=== PATIENT | female | born 1990 | race Caucasian/White ===

== ENCOUNTER 2019-05-09 17:10 | Emergency (ER) | payer OTHER, SELFPAY ==
--- NOTE | 2019-05-09 17:14 | DI.US.S_ITS ---
PROCEDURE: US PELVIC COMPLETE INDICATIONS: CONCERN FOR LEFT-SIDED OVARIAN TORSION, LT PELVIC PAIN TECHNIQUE: Real-time scanning was performed of the pelvic organs, with image documentation. Additional endovaginal scanning was necessary due to incomplete visualization of the adnexal and endometrial structures by transabdominal scanning. COMPARISON: None. FINDINGS: Transabdominal scanning: Limited scanning through the kidneys shows no hydronephrosis. No pathologic free abdominal or pelvic fluid. Endovaginal scanning: Uterus: Uterus is normal in size at 9.8 x 5.0 x 7.2 cm cm. The endometrium measures 8 mm in combined thickness. Ovaries: Right ovary measures 4.40 1.6 x 2.0 cm. Left ovary measures 5.6 x 2.0 x 2.0 cm. There is normal flow noted in both ovaries. The left ovary is normal in appearance. IMPRESSION: Unremarkable pelvic ultrasound no evidence of left ovarian torsion. Dictated by: Javier Denny M.D. on 05/09/2019 at 18:29 Approved by: Javier Denny M.D. on 05/09/2019 at 18:33
[2019-05-09 17:15] VITALS: BP 108/57; PULSE 66; RESP 13; TEMP 36.5; O2SAT 97; BMI 23.7
--- NOTE | 2019-05-09 17:27 | ED_ITS ---
HPI - Abdominal Pain <Jeffry Giang DO - Last Filed: 05/10/19 07:21> General Chief Complaint: Abdominal Pain Stated Complaint: SENT FOR POSSIBLE OVARIAN TORSION Time Seen by Provider: 05/09/19 17:14 Source: patient Mode of arrival: ambulatory Limitations: no limitations History of Present Illness HPI narrative: Patient is a 29-year-old female. She is a . She is not currently . Is using condoms for control. States she has a few days away from ?ovulation ?no prior abdominal surgeries. Was sent over from her spot billing clerk for concerns of ovarian torsion. She states that yesterday in the afternoon she had a fairly sudden onset of left-sided adnexal pain. She states that has continued since then. No vaginal bleeding. No urinary symptoms. She states she is constipated. No vomiting. States that the symptoms do not change with urinating. Related Data Previous Rx's Medication Instructions Recorded hydrocodone-acetaminophen 1 tab PO Q4-6H PRN #10 tab 05/09/19 ibuprofen 600 mg PO TID-QID PRN #20 tab 05/09/19 ondansetron 4 mg PO TID-QID PRN #10 tab 05/09/19 Allergies Allergy/AdvReac Type Severity Reaction Status Date / Time No Known Drug Allergies Allergy Verified 05/09/19 17:21 Review of Systems <Jeffry Giang DO - Last Filed: 05/10/19 07:21> Constitutional Denies fever(s) and Denies headache(s) ENT Ears, Nose, Mouth, and Throat: Denies headache(s) Cardiovascular Denies chest pain and Denies dyspnea Respiratory Denies dyspnea Gastrointestinal Gastrointestinal: Reports abdominal pain, Reports constipation, Denies diarrhea, Denies nausea and Denies vomiting Genitourinary Denies dysuria and Denies vaginal discharge Musculoskeletal Denies back pain, Denies myalgias and Denies arthralgias Integumentary/Breasts Denies rash Neurologic Denies behavioral changes and Denies headache(s) Psychiatric Denies behavioral changes Hematologic/Lymphatic Denies easy bleeding and Denies easy bruising PFSH <Jeffry Giang DO - Last Filed: 05/10/19 07:21> Medical History Healthy adult (Acute) Social History Smoking Status: Current some day smoker Social History Smoking Status: Current some day smoker Exam <Jeffry Giang DO - Last Filed: 05/10/19 07:21> Initial Vital Signs Initial Vital Signs: Vital Signs Temperature 97.7 F 05/09/19 17:15 Pulse Rate 66 05/09/19 17:15 Respiratory Rate 13 05/09/19 17:15 Blood Pressure 108/57 L 05/09/19 17:15 Pulse Oximetry 97 05/09/19 17:15 Const General: cooperative, comfortable, well developed, well groomed and No acute distress Orientation: alert, awake and oriented x3 HENMT Head: normal to inspection and normocephalic Resp Effort & Inspection: normal respiratory effort Auscultation: clear to auscultation bilaterally Cardio Rate: regular rate Rhythm: regular rhythm GI Inspection: non-distended Palpation: soft, No firm and No tender Speculum Exam - Cervix: nontender Bimanual Exam- Vagina & Uterus: normal cervical palpation, No cervical tenderness and no cervical motion tenderness Bimanual Exam- Adnexa, other: adnexal tenderness on the left Skin Lesions: no lesions Rashes: no rashes Neuro General: alert and awake Cognition: normal cognition Speech: speech normal Motor: muscle tone normal throughout Sensory Exam: no sensory deficits noted Extrem General: normal to inspection and capillary refill normal Psych Appearance: grossly normal and well kempt <Shyam Joya DO - Last Filed: 05/10/19 00:14> Initial Vital Signs Initial Vital Signs: Vital Signs Temperature 97.7 F 05/09/19 17:15 Pulse Rate 66 05/09/19 17:15 Respiratory Rate 13 05/09/19 17:15 Blood Pressure 108/57 L 05/09/19 17:15 Pulse Oximetry 97 05/09/19 17:15 Course <DO Wilfredo Andre Last Filed: 05/10/19 07:21> Orders Ordered: Discontinued Medications Morphine Sulfate (Morphine) 4 mg IV NOW ONE Stop: 05/09/19 17:29 Last Admin: 05/09/19 18:33 Dose: Not Given Ondansetron HCl (Zofran) 4 mg IV NOW ONE Stop: 05/09/19 17:29 Last Admin: 05/09/19 18:33 Dose: Not Given Vital Signs - 8 hr 05/09/19 17:15 05/09/19 18:31 05/09/19 20:12 Temperature 97.7 F Pulse Rate 66 68 92 H Respiratory Rate 13 18 Blood Pressure 108/57 L 115/95 H Blood Pressure [Right Arm] 98/50 L Pulse Oximetry 97 98 <Shyam Joya DO - Last Filed: 05/10/19 00:14> Course Narrative: I received this patient from Dr. Giang and performed an independent history and physical. I have no significant additions to the above. Orders Ordered: Discontinued Medications Morphine Sulfate (Morphine) 4 mg IV NOW ONE Stop: 05/09/19 17:29 Last Admin: 05/09/19 18:33 Dose: Not Given Ondansetron HCl (Zofran) 4 mg IV NOW ONE Stop: 05/09/19 17:29 Last Admin: 05/09/19 18:33 Dose: Not Given Vital Signs - 8 hr 05/09/19 17:15 05/09/19 18:31 05/09/19 20:12 Temperature 97.7 F Pulse Rate 66 68 92 H Respiratory Rate 13 18 Blood Pressure 108/57 L 115/95 H Blood Pressure [Right Arm] 98/50 L Pulse Oximetry 97 98 MDM - Abdominal Pain <Jeffry Giang DO - Last Filed: 05/10/19 07:21> Lab Data Result diagrams: 05/09/19 18:15 05/09/19 18:15 Lab Results 05/09/19 05/09/19 05/09/19 Range/Units 17:15 17:15 18:15 WBC 6.2 (4.5-11.0) X10^3/uL RBC 3.98 L (4.0-5.2) X10^6/uL Hgb 11.9 L (12.0-16.0) g/dL Hct 35.9 L (36-46) % MCV 90.3 (80-100) fL MCH 30.0 (26-34) PG MCHC 33.2 (30-36) % RDW 13.1 (11.6-14.8) % Plt Count 183 (150-400) X10^3/uL Neut % (Auto) 52.9 (50-75) % Lymph % (Auto) 37.0 (25-40) % [place] % (Auto) 8.5 (3-14) % Eos % (Auto) 0.9 L (2-4) % Baso % (Auto) 0.7 (0-2) % Neut # (Auto) 3300 (3064-4332) /uL Lymph # (Auto) 2300 (6402-9068) /uL [place] # (Auto) 500 (0-900) /uL Eos # (Auto) 100 (0-450) /uL Baso # (Auto) 0 (0-100) /uL Sodium (137-145) mmol/L Potassium (3.4-5.1) mmol/L Chloride (98-107) mmol/L Carbon Dioxide (22-32) mmol/L BUN (7-17) mg/dL Creatinine (0.52-1.04) mg/dL Estimated GFR (>60) mL/min BUN/Creatinine Ratio (6-22) Glucose (70-100) mg/dL Calcium (8.4-10.2) mg/dL Total Bilirubin (0.2-1.3) mg/dL AST (14-36) IU/L ALT (9-52) IU/L Alkaline Phosphatase (38-126) U/L Total Protein (6.3-8.2) g/dL Albumin (3.5-5.0) g/dL Globulin (1.7-4.1) g/dL Albumin/Globulin Ratio (1.0-2.8) Lipase (23-300) U/L Urine RBC None seen (0-5/HPF) Urine WBC 5-10/hpf H (0-5/HPF) Ur Squamous Epith Cells 0-1 /hpf (0-5/HPF) Amorphous Sediment 1+ Urine Bacteria Occasional (0-1) (None) Urine Mucus 2+ H (Negative) Ur Culture Indicated? Specimen cultured Ur Chlamydia DNA (PCR) Not detected N gonorrhoeae DNA (PCR) Not detected 05/09/19 Range/Units 18:15 WBC (4.5-11.0) X10^3/uL RBC (4.0-5.2) X10^6/uL Hgb (12.0-16.0) g/dL Hct (36-46) % MCV (80-100) fL MCH (26-34) PG MCHC (30-36) % RDW (11.6-14.8) % Plt Count (150-400) X10^3/uL Neut % (Auto) (50-75) % Lymph % (Auto) (25-40) % [place] % (Auto) (3-14) % Eos % (Auto) (2-4) % Baso % (Auto) (0-2) % Neut # (Auto) (4552-6228) /uL Lymph # (Auto) (7179-0760) /uL [place] # (Auto) (0-900) /uL Eos # (Auto) (0-450) /uL Baso # (Auto) (0-100) /uL Sodium 138 (137-145) mmol/L Potassium 4.0 (3.4-5.1) mmol/L Chloride 104 (98-107) mmol/L Carbon Dioxide 30 (22-32) mmol/L BUN 15 (7-17) mg/dL Creatinine 0.60 (0.52-1.04) mg/dL Estimated GFR > 60.0 (>60) mL/min BUN/Creatinine Ratio 25.0 H (6-22) Glucose 82 (70-100) mg/dL Calcium 9.1 (8.4-10.2) mg/dL Total Bilirubin 0.3 (0.2-1.3) mg/dL AST 22 (14-36) IU/L ALT 19 (9-52) IU/L Alkaline Phosphatase 60 (38-126) U/L Total Protein 6.8 (6.3-8.2) g/dL Albumin 3.9 (3.5-5.0) g/dL Globulin 2.9 (1.7-4.1) g/dL Albumin/Globulin Ratio 1.3 (1.0-2.8) Lipase 90 (23-300) U/L Urine RBC (0-5/HPF) Urine WBC (0-5/HPF) Ur Squamous Epith Cells (0-5/HPF) Amorphous Sediment Urine Bacteria (None) Urine Mucus (Negative) Ur Culture Indicated? Ur Chlamydia DNA (PCR) N gonorrhoeae DNA (PCR) Point of care testing: Point of Care Testing Test Results Negative Urine Dip Bedside Urine Glucose Negative Bedside Urine Bilirubin + 1 Bedside Urine Ketone +/- 5 Urine Specific [place] 1.030 Bedside Urine Occult Blood - Negative Bedside Urine pH 5.5 Bedside Urine Protein +/- 15 Bedside Urine Urobilinogen - Negative Bedside Urine Nitrite - Negative Bedside Urine Leukocytes - Negative Esterase MDM Narrative Medical decision making narrative: test negative. Urinalysis unremarkable. On exam patient has left-sided adnexal tenderness. No cervical motion tenderness. Labs pending and ultrasound pending. Care turned over to Dr. Joya at change of shift to follow up on labs and ultrasound. <Shyam Joya, - Last Filed: 05/10/19 00:14> Lab Data Lab Results 05/09/19 05/09/19 05/09/19 Range/Units 17:15 17:15 18:15 WBC 6.2 (4.5-11.0) X10^3/uL RBC 3.98 L (4.0-5.2) X10^6/uL Hgb 11.9 L (12.0-16.0) g/dL Hct 35.9 L (36-46) % MCV 90.3 (80-100) fL MCH 30.0 (26-34) PG MCHC 33.2 (30-36) % RDW 13.1 (11.6-14.8) % Plt Count 183 (150-400) X10^3/uL Neut % (Auto) 52.9 (50-75) % Lymph % (Auto) 37.0 (25-40) % [place] % (Auto) 8.5 (3-14) % Eos % (Auto) 0.9 L (2-4) % Baso % (Auto) 0.7 (0-2) % Neut # (Auto) 3300 (8432-5082) /uL Lymph # (Auto) 2300 (4107-6082) /uL [place] # (Auto) 500 (0-900) /uL Eos # (Auto) 100 (0-450) /uL Baso # (Auto) 0 (0-100) /uL Sodium (137-145) mmol/L Potassium (3.4-5.1) mmol/L Chloride (98-107) mmol/L Carbon Dioxide (22-32) mmol/L BUN (7-17) mg/dL Creatinine (0.52-1.04) mg/dL Estimated GFR (>60) mL/min BUN/Creatinine Ratio (6-22) Glucose (70-100) mg/dL Calcium (8.4-10.2) mg/dL Total Bilirubin (0.2-1.3) mg/dL AST (14-36) IU/L ALT (9-52) IU/L Alkaline Phosphatase (38-126) U/L Total Protein (6.3-8.2) g/dL Albumin (3.5-5.0) g/dL Globulin (1.7-4.1) g/dL Albumin/Globulin Ratio (1.0-2.8) Lipase (23-300) U/L Urine RBC None seen (0-5/HPF) Urine WBC 5-10/hpf H (0-5/HPF) Ur Squamous Epith Cells 0-1 /hpf (0-5/HPF) Amorphous Sediment 1+ Urine Bacteria Occasional (0-1) (None) Urine Mucus 2+ H (Negative) Ur Culture Indicated? Specimen cultured Ur Chlamydia DNA (PCR) Not detected N gonorrhoeae DNA (PCR) Not detected 05/09/19 Range/Units 18:15 WBC (4.5-11.0) X10^3/uL RBC (4.0-5.2) X10^6/uL Hgb (12.0-16.0) g/dL Hct (36-46) % MCV (80-100) fL MCH (26-34) PG MCHC (30-36) % RDW (11.6-14.8) % Plt Count (150-400) X10^3/uL Neut % (Auto) (50-75) % Lymph % (Auto) (25-40) % [place] % (Auto) (3-14) % Eos % (Auto) (2-4) % Baso % (Auto) (0-2) % Neut # (Auto) (0221-1260) /uL Lymph # (Auto) (9303-4843) /uL [place] # (Auto) (0-900) /uL Eos # (Auto) (0-450) /uL Baso # (Auto) (0-100) /uL Sodium 138 (137-145) mmol/L Potassium 4.0 (3.4-5.1) mmol/L Chloride 104 (98-107) mmol/L Carbon Dioxide 30 (22-32) mmol/L BUN 15 (7-17) mg/dL Creatinine 0.60 (0.52-1.04) mg/dL Estimated GFR > 60.0 (>60) mL/min BUN/Creatinine Ratio 25.0 H (6-22) Glucose 82 (70-100) mg/dL Calcium 9.1 (8.4-10.2) mg/dL Total Bilirubin 0.3 (0.2-1.3) mg/dL AST 22 (14-36) IU/L ALT 19 (9-52) IU/L Alkaline Phosphatase 60 (38-126) U/L Total Protein 6.8 (6.3-8.2) g/dL Albumin 3.9 (3.5-5.0) g/dL Globulin 2.9 (1.7-4.1) g/dL Albumin/Globulin Ratio 1.3 (1.0-2.8) Lipase 90 (23-300) U/L Urine RBC (0-5/HPF) Urine WBC (0-5/HPF) Ur Squamous Epith Cells (0-5/HPF) Amorphous Sediment Urine Bacteria (None) Urine Mucus (Negative) Ur Culture Indicated? Ur Chlamydia DNA (PCR) N gonorrhoeae DNA (PCR) Point of care testing: Point of Care Testing Test Results Negative Urine Dip Bedside Urine Glucose Negative Bedside Urine Bilirubin + 1 Bedside Urine Ketone +/- 5 Urine Specific [place] 1.030 Bedside Urine Occult Blood - Negative Bedside Urine pH 5.5 Bedside Urine Protein +/- 15 Bedside Urine Urobilinogen - Negative Bedside Urine Nitrite - Negative Bedside Urine Leukocytes - Negative Esterase Imaging Data CT scan - abdomen: Radiologist's impression: [place] [address] CT Scan Report Signed Patient: Nader Tate TMR#: [id number] : 1990Acct:[id number] Age/Sex: 29 / FDate of Service: 05/09/19 Loc: ED Accession Number: [id number] Procedure: CT abdomen pelvis w con Ordering Provider: Shyam Joya D.O. PROCEDURE: CT ABDOMEN PELVIS W CON INDICATIONS: severe pelvic pain, LLQ TECHNIQUE: After the administration of intravenous contrast, 5 mm thick sections acquired from the diaphragm to the symphysis. 5 mm coronal and sagittal reformats were acquired. For radiation dose reduction, the following was used: automated exposure control, adjustment of mA and/or kV according to patient size. COMPARISON: [facility], US, US PELVIC COMPLETE, 05/09/2019, 17:47. FINDINGS: Image quality: Excellent. ABDOMEN: Lung bases: Lung bases are clear. Heart size is normal. Solid organs: Liver is normal in size and enhancement. Gallbladder is unremarkable. Biliary system is non dilated. Pancreas enhances normally. Spleen is normal in size and enhancement. No adrenal nodules. Kidneys demonstrate normal size and enhancement, without hydronephrosis. Peritoneum and bowel: Bowel loops demonstrate normal wall thickness and caliber. No free fluid or air. Nodes and vessels: No retroperitoneal or mesenteric adenopathy by size criteria. Aorta and inferior vena cava are normal in size. Miscellaneous: No ventral hernias. PELVIS: Genitourinary: Mild diffuse bladder wall thickening. Miscellaneous: No inguinal hernias or adenopathy. Uterus is retroverted. Bones: No suspicious bony lesions. No vertebral body compression fractures. IMPRESSION: Unremarkable CT of the abdomen and pelvis with contrast. Dictated by: Javier Denny M.D. on 05/09/2019 at 19:45 Approved by: Javier Denny M.D. on 05/09/2019 at 19:48 Discharge Plan Departure Patient Disposition: Home Clinical Impression: Pelvic pain Discharge Date/Time: 05/09/19 20:13 Interventions: ED Discharge Assessment Last Done: 05/09/19 20:12 Instructions: DI for Pelvic Pain Activity Restrictions/Additional Instructions: *You have been diagnosed with [left lower pelvic pain, possible ovarian cyst] *What to do: *Take medications as directed *Follow up with your primary care provider in 2-3 days, call for an appointment. Let them know you were seen in the Emergency Department and that we ask that you be seen in follow up *Return to ER if you should have any new, worsening or concerning symptoms, such as [worsening pain, fever over 101 F, persistent vomiting or other bothersome symptoms] Prescriptions: New hydrocodone-acetaminophen 5-325 mg tablet 1 tab PO Q4-6H PRN (Reason: pain) Qty: 10 RF: 0 ibuprofen 600 mg tablet 600 mg PO TID-QID PRN (Reason: pain) Qty: 20 RF: 0 ondansetron 4 mg tablet,disintegrating 4 mg PO TID-QID PRN (Reason: nausea and vomiting) Qty: 10 RF: 0
[2019-05-09 17:31] LABS: RBC Urine None Seen (0-5/HPF)
[2019-05-09 17:39] LABS: Amorphous Sediment Urine 1+; Bacteria Urine Occasional (0-1); Culture Indicated Urine Specimen Cultured; Mucus Urine 2+ (Negative); Squamous Epithelial Cell Urine 0-1 /HPF (0-5/HPF); WBC Urine 5-10/HPF (0-5/HPF)
[2019-05-09 18:26] LABS: Add Manual Diff / Slide Review NO; Basophils Absolute Auto 0 /uL (0-100); Basophils Percent Auto 0.7 % (0-2); Eosinophils Absolute Auto 100 /uL (0-450); Eosinophils Percent Auto 0.9 % (2-4); Hematocrit 35.9 % (36-46); Hemoglobin 11.9 g/dL (12.0-16.0); Lymphocytes Absolute Auto 2300 /uL (1100-4500); Mean Corpuscular HGB Conc 33.2 % (30-36); Mean Corpuscular Volume 90.3 fL (80-100); Monocytes Absolute Auto 500 /uL (0-900); Monocytes Percent Auto 8.5 % (3-14); Neutrophils Absolute Auto 3300 /uL (1500-7000); Neutrophils Percent Auto 52.9 % (50-75); Platelet Count 183 X10^3/uL (150-400); Red Blood Cell Count 3.98 X10^6/uL (4.0-5.2); Red Cell Distribution Width 13.1 % (11.6-14.8); White Blood Cell Count 6.2 X10^3/uL (4.5-11.0)
[2019-05-09 18:31] VITALS: BP 98/50; PULSE 68; RESP 18; O2SAT 98
[2019-05-09 18:38] LABS: Alanine Aminotransferase 19 IU/L (9-52); Albumin 3.9 g/dL (3.5-5.0); Albumin Globulin Ratio 1.3 (1.0-2.8); Alkaline Phosphatase 60 U/L (38-126); Aspartate Aminotransferase 22 IU/L (14-36); Bilirubin Total 0.3 mg/dL (0.2-1.3); Blood Urea Nitrogen 15 mg/dL (7-17); Calcium 9.1 mg/dL (8.4-10.2); Carbon Dioxide 30 mmol/L (22-32); Chloride 104 mmol/L (98-107); Estimated Glomerular Filt Rate > 60.0 mL/min (>60); Globulin 2.9 g/dL (1.7-4.1); Glucose 82 mg/dL (70-100); HEMOLYSIS < 15 (0-50); Lipase 90 U/L (23-300); Sodium 138 mmol/L (137-145); Total Protein 6.8 g/dL (6.3-8.2)
--- NOTE | 2019-05-09 18:52 | DI.CT.S_ITS ---
PROCEDURE: CT ABDOMEN PELVIS W CON INDICATIONS: severe pelvic pain, LLQ TECHNIQUE: After the administration of intravenous contrast, 5 mm thick sections acquired from the diaphragm to the symphysis. 5 mm coronal and sagittal reformats were acquired. For radiation dose reduction, the following was used: automated exposure control, adjustment of mA and/or kV according to patient size. COMPARISON: [facility], , PELVIC COMPLETE, 05/09/2019, 17:47. FINDINGS: Image quality: Excellent. ABDOMEN: Lung bases: Lung bases are clear. Heart size is normal. Solid organs: Liver is normal in size and enhancement. Gallbladder is unremarkable. Biliary system is non dilated. Pancreas enhances normally. Spleen is normal in size and enhancement. No adrenal nodules. Kidneys demonstrate normal size and enhancement, without hydronephrosis. Peritoneum and bowel: Bowel loops demonstrate normal wall thickness and caliber. No free fluid or air. Nodes and vessels: No retroperitoneal or mesenteric adenopathy by size criteria. Aorta and inferior vena cava are normal in size. Miscellaneous: No ventral hernias. PELVIS: Genitourinary: Mild diffuse bladder wall thickening. Miscellaneous: No inguinal hernias or adenopathy. Uterus is retroverted. Bones: No suspicious bony lesions. No vertebral body compression fractures. IMPRESSION: Unremarkable CT of the abdomen and pelvis with contrast. Dictated by: Javier Denny M.D. on 05/09/2019 at 19:45 Approved by: Javier Denny M.D. on 05/09/2019 at 19:48
[2019-05-09 19:00] LABS: Urine N gonorrhoeae NOT DETECTED
[2019-05-09 19:04] LABS: Urine Chlamydia NOT DETECTED
[2019-05-09 20:12] VITALS: BP 115/95; PULSE 92
== END 2019-05-09 20:13 | disposition home or self-care (01) ==
PROVIDERS: Emergency Medicine; Emergency Provider Emergency Medicine
DX: R10.2 Pelvic and perineal pain (principal)
CPT/HCPCS: 36591; 74177; 76830; 76856; 80053; 81003; 81015; 81025; 83690; 85025; 87077; 87086; 87491; 87591; 99282; 99284; Q9967